=== PATIENT | female | born 1990 | race Caucasian/White ===

== ENCOUNTER 2018-09-28 12:00 | Emergency (ER) | payer MEDICAID, SELFPAY ==
[2018-09-28 12:01] VITALS: BP 141/78; PULSE 96; RESP 16; TEMP 36.6; O2SAT 100; BMI 28.1
--- NOTE | 2018-09-28 12:25 | ED.DCSUM_ITS ---
- ER Visit Summary Date of Service: 09/28/18 Chief Complaint: Urticaria History of Present Illness: The patient is a 28 F who presents with urticaria that have been getting worse over the past week. Patient went to the urgent care today was given a prescription for Medrol Dosepak. Patient states she took 6 tablets of the methylprednisolone today. Patient states that she feels like her throat is tight. Patient states it is worse with swallowing. Patient states she looked in the back of her throat and noted some hives in her oropharynx. Patient denies any difficulty breathing. Physical Examination: Vital signs are stable. Patient is afebrile. Patient is in no acute distress. Oral mucosa is pink and moist. Oropharynx is clear. Airway is patent. Neck is supple. Trachea is midline. There is no JVD noted. Heart was regular rate and rhythm. Lungs are clear and equal bilateral. Abdomen is soft nontender. Skin is warm and dry. There are urticaria noted over the face, neck, and upper chest. There are no vesicles or pustules. There is no involvement of mucous membranes. There are no petechiae noted. Emergency Department Course and Treatment: Patient was given Solu-Medrol, Benadryl, and Pepcid here. Patient felt better on reevaluation. Patient was instructed to continue her prednisone as previously prescribed. Patient was instructed to take Benadryl as needed for any itching. She was instructed to follow-up with her primary care physician in 5-7 days. Patient understood and was agreeable with the plan. All questions were answered. Disposition: Discharge home Impression: Urticaria This note was generated with [employer] dictation software. It may contain incorrect words, spelling, and punctuation that were not noted in review of the chart prior to signing ED Disposition - Plan for ED Patient: Disposition: Home or Assisted Living Diagnosis: Urticaria Instructions: ED Urticaria Referrals: Care Physician,No Primary [Primary Care Provider] - Sonny Olmos DO [STAFF PHYSICIAN] - 5-7 Days
[2018-09-28] MEDS: DiphenhydrAMINE 50 MG/ML Syringe 25 MG IV (12:40)
[2018-09-28] MEDS: MethylPREDNISolone 125 MG/2 ML Vial 60 MG IV (12:41)
[2018-09-28 13:36] VITALS: PULSE 90; RESP 18; O2SAT 99
--- NOTE | 2018-09-28 14:00 | ED.RN ---
PT RESTING COMFORTABLY IN BED. STATES FEELS BETTER. STATES THROAT DOES NOT FEEL TIGHT AT THIS TIME. OXYGEN SATURATION 99%
[2018-09-28 14:23] VITALS: BP 124/84; PULSE 86; RESP 14; O2SAT 99
--- NOTE | 2018-09-28 14:33 | ED.RN ---
TINGLING, DIZZINESS AND TIGHTNESS IN THROAT FELING RESOLVED PER PT FEELS BETTER
[2018-09-28 14:58] VITALS: BP 117/71; PULSE 92; RESP 11; O2SAT 99
== END 2018-09-28 14:59 | disposition home or self-care (01) ==
PROVIDERS: Emergency Provider Emergency Medicine
DX: L50.9 Urticaria, unspecified (principal)
CPT/HCPCS: 99284; J7030; A4216; J3490

== ENCOUNTER 2024-07-21 16:38 | Emergency (ER) | payer SELFPAY ==
[2024-07-21 16:38] VITALS: BP 124/82; PULSE 78; RESP 18; TEMP 36.3; O2SAT 100; BMI 25.5
--- NOTE | 2024-07-21 16:54 | EX.ED.DYSGE1 ---
HPI History of Present Illness Chief Complaint: Sore Throat Narrative Narrative: Patient is a 34-year-old female with no known significant past medical history who presented to the emergency department chief complaint of sore throat and right ear pain. Patient states that about a week ago she had flulike symptoms. States that for the past few days she noted that recently developed a sore throat and right ear pain. Patient states that she has not taken anything for her pain and try to go to urgent care however urgent cares were closed therefore she came here for further evaluation management. Patient states that she is able to eat and drink and swallow without any difficulty. PFSH [facility] Home Medications ?Medication ?Instructions ?Recorded ?Last Taken ?Type ascorbic acid (vitamin C) 1,000 mg 1,000 mg PO DAILY 09/28/18 Unknown History tablet (Vitamin C) multivitamin (Daily Multiple 1 ea PO DAILY 09/28/18 Unknown History tablet) Allergy/AdvReac Type Severity Reaction Status Date / Time amoxicillin (Amoxicillin) Allergy Rash Verified 07/21/24 16:38 Social History Smoking Status: Never smoker ROS ROS ED ROS Narrative Constitutional: Denies fevers, chills, headaches, lightheadedness Ears, nose, throat: Complains of right ear pain and sore throat as noted above Cardiovascular: Denies chest pain or palpitations Respiratory: Denies coughing wheezing shortness of breath Abdomen: Denies nausea vomit diarrhea Neurological: Denies numbness, weakness, tingling Skin: Denies any rashes or lesions EXAM Physical Exam Narrative Exam Narrative: General: Patient was lying in bed rest comfortably did not appear to be in acute distress Head: Atraumatic, normocephalic Eyes: PERRL bilaterally, EOMI bilaterally, no conjunctival injection noted, mild posterior pharynx erythema noted, uvula midline, no tonsillar exudates noted, TMs visualized bilaterally patient has mild fluid behind the right ear no concern for otitis externa or otitis media no concern for mastoiditis Neck: Soft, supple, trach midline Cardiovascular: Regular rate and rhythm no murmurs gallops rubs noted Respiratory: Clear to auscultation bilaterally Extremities: +5/5 strength noted in the bilateral upper and lower extremities Neurological: Patient follow commands and that she was at [facility] year is 2025 Skin: Warm, dry, intact no rashes or lesions noted Const Vital Signs: 07/21/24 16:38 Temperature 97.3 F L Temperature Source Temporal Pulse Rate 78 Respiratory Rate 18 Blood Pressure 124/82 H Blood Pressure Mean 96 Pulse Ox 100 Oxygen Delivery Method Room Air MDM MDM MDM Narrative Medical decision making narrative: Patient is a 34-year-old female who presents to the emergency department the chief complaint of right ear pain and sore throat. On the differential diagnose includes but not limited to viral pharyngitis, strep throat. Once workup is obtained reviewed she will be reevaluated. Patient be given Tylenol and Decadron. Patient tested negative for strep throat. On reevaluation the patient she is feeling better she would like to go home at this point time. Patient is advised to rotate Tylenol and ibuprofen [id number]. She is advised to follow-up on the strep culture result with her primary care physician and return with worsening symptoms or concerns. She is agreeable this plan all question concerns answered she was discharged home in stable condition. Discharge Plan Triage Chief Complaint: Sore Throat ED Provider: Maximo Licona Dx/Rx/DC Orders Clinical Impression: Viral pharyngitis Prescriptions: No Action multivitamin [Daily Multiple] 1 EACH tablet 1 ea PO DAILY ascorbic acid (vitamin C) [Vitamin C] 1,000 MG tablet 1,000 mg PO DAILY Primary Care Provider: Care Physician,[place] Primary Referrals: Care Physician,No Primary [Primary Care Provider] - Payton Mejia [facility], DO [[facility]] - Activity Restrictions/Additional Instructions: Follow-up on the strep culture result with your primary care physician. Rotate Tylenol and ibuprofen [id number] when you do this you can take something every 3 hours. Return with worsening symptoms or any concerns. The steroids will continue to take effect over the next 2 to 3 days. Print Language: Maldivian Disposition Disposition: Home, Self Care
[2024-07-21] MEDS: dexAMETHasone 4 MG Tablet 6 MG PO (17:06)
[2024-07-21 18:15] VITALS: BP 124/74; PULSE 75; RESP 16; TEMP 36.7; O2SAT 99
== END 2024-07-21 18:15 | disposition home or self-care (01) ==
PROVIDERS: Emergency Provider Emergency Medicine; Visit Provider Emergency Medicine
DX: J02.8 Acute pharyngitis due to other specified organisms (principal); B97.89 Other viral agents as the cause of diseases classified elsewhere; Z88.0 Allergy status to penicillin
CPT/HCPCS: 87081; 87651; 99282